=== PATIENT | male | born 1975 | race Caucasian/White ===

== ENCOUNTER 2020-10-16 12:04 | Inpatient (IN) | payer MEDICARE ==
[~2020-10-16] VITALS: Ht 185.5 cm; Wt 154.4 kg
[2020-10-16] VITALS (7 sets, daily range): BP systolic 102–131; BP diastolic 58–84
[~2020-10-16 12:04] MED LIST: NAPR-243 PO; TRM50T PO
--- NOTE | 2020-10-16 12:25 | ED Cough/URI ---
General Chief Complaint: Respiratory Problems Stated Complaint: COVID+ 10/10/20 WHEEZING/CONGESTION/DIARRHEA Source: patient Exam Limitations: no limitations History of Present Illness Date Seen by Provider: Oct 16, 2020 Time Seen by Provider: 12:25 Initial Comments 45-year-old male with history of COPD obesity (BMI 42) and coronary artery disease with one coronary stent presents to ER with reports of exertional dyspnea and cough. He tested positive at [facility] urgent care for COVID-19 on 10/10/2020. He became symptomatic the day before on the . He does not have a local physician. Timing/Duration: constant Severity/Quality: moderate Associated Symptoms: cough, shortness of breath, wheezing Allergies and Home Medications Allergies Coded Allergies: No Known Drug Allergies (Unverified , 10/16/20) Home Medications Prednisone 20 Mg Tab, 40 MG PO DAILY Prescribed by: ALETA SMITH on 10/16/20 1323 Patient Home Medication List Home Medication List Reviewed: Yes Review of Systems Review of Systems Constitutional: see HPI, chills, malaise, weakness EENTM: see HPI Respiratory: see HPI, cough, short of breath Genitourinary: no symptoms reported Musculoskeletal: no symptoms reported Skin: no symptoms reported Psychiatric/Neurological: No Symptoms Reported Hematologic/Lymphatic: No Symptoms Reported Immunological/Allergic: no symptoms reported Physical Exam Vital Signs - First Documented 10/16/20 12:20 Temp 37.6 Pulse 121 Resp 22 B/P (MAP) 138/98 (111) O2 Delivery Room Air Capillary Refill : Height: '" Weight: lbs. oz. kg; BMI Method: General Appearance: WD/WN, no apparent distress, obese, other (Oxygen saturation 93% on room air after walking to the room and outside, rises to 95% on room air with rest.) Eyes: Bilateral Eye Normal Inspection, Bilateral Eye PERRL, Bilateral Eye EOMI HEENT: PERRL/EOMI, normal ENT inspection Neck: non-tender, full range of motion Respiratory: no respiratory distress, no accessory muscle use, decreased breath sounds Cardiovascular: regular rate, rhythm, no murmur Gastrointestinal: normal bowel sounds, non tender, soft Extremities: normal range of motion, non-tender Neurologic/Psychiatric: alert, normal mood/affect, oriented x 3 Skin: normal color, warm/dry Progress/Results/Core Measures Suspected Sepsis SIRS Temperature: Pulse: Respiratory Rate: Laboratory Tests 12/23/20 12:18: White Blood Count 6.1 Blood Pressure / Mean: Laboratory Tests 10/16/20 12:18: Creatinine 1.12, Platelet Count 244, Total Bilirubin 0.7 Results/Orders Lab Results Laboratory Tests Test 10/16/20 12:18 Range/Units White Blood Count 6.1 4.3-11.0 10^3/uL Red Blood Count 5.30 4.30-5.52 10^6/uL Hemoglobin 16.5 13.3-17.7 g/dL Hematocrit 49 40-54 % Mean Corpuscular Volume 93 80-99 fL Mean Corpuscular Hemoglobin 31 25-34 pg Mean Corpuscular Hemoglobin Concent 34 32-36 g/dL Red Cell Distribution Width 12.2 10.0-14.5 % Platelet Count 244 130-400 10^3/uL Mean Platelet Volume 11.0 9.0-12.2 fL Immature Granulocyte % (Auto) 0 % Neutrophils (%) (Auto) 68 42-75 % Lymphocytes (%) (Auto) 26 12-44 % Monocytes (%) (Auto) 6 0-12 % Eosinophils (%) (Auto) 0 0-10 % Basophils (%) (Auto) 0 0-10 % Neutrophils # (Auto) 4.2 1.8-7.8 10^3/uL Lymphocytes # (Auto) 1.6 1.0-4.0 10^3/uL Monocytes # (Auto) 0.4 0.0-1.0 10^3/uL Eosinophils # (Auto) 0.0 0.0-0.3 10^3/uL Basophils # (Auto) 0.0 0.0-0.1 10^3/uL Immature Granulocyte # (Auto) 0.0 0.0-0.1 10^3/uL D-Dimer 0.42 0.00-0.49 UG/ML Sodium Level 134 L 135-145 MMOL/L Potassium Level 4.2 3.6-5.0 MMOL/L Chloride Level 100 98-107 MMOL/L Carbon Dioxide Level 21 21-32 MMOL/L Anion Gap 13 5-14 MMOL/L Blood Urea Nitrogen 13 7-18 MG/DL Creatinine 1.12 0.60-1.30 MG/DL Estimat Glomerular Filtration Rate > 60 BUN/Creatinine Ratio 12 Glucose Level 112 H 70-105 MG/DL Calcium Level 9.1 8.5-10.1 MG/DL Corrected Calcium 9.0 8.5-10.1 MG/DL Total Bilirubin 0.7 0.1-1.0 MG/DL Aspartate Amino Transf (AST/SGOT) 32 5-34 U/L Alanine Aminotransferase (ALT/SGPT) 29 0-55 U/L Alkaline Phosphatase 62 40-136 U/L Troponin I < 0.028 <0.028 NG/ML C-Reactive Protein High Sensitivity 1.68 H 0.00-0.50 MG/DL B-Type Natriuretic Peptide < 10.0 <100.0 PG/ML Total Protein 8.3 H 6.4-8.2 GM/DL Albumin 4.1 3.2-4.5 GM/DL Procalcitonin 0.05 <0.10 NG/ML My Orders Orders - ALETA SMITH APRN Procalcitonin (Pct) (10/16/20 12:22) Cbc With Automated Diff (10/16/20 12:22) Comprehensive Metabolic Panel (10/16/20 12:22) Fibrin Degradation Products (10/16/20 12:22) Chest 1 View, Ap/Pa Only (10/16/20 12:22) Ed Iv/Invasive Line Start (10/16/20 12:22) Troponin I (10/16/20 12:22) Ekg Tracing (10/16/20 12:22) BNP (10/16/20 12:22) Albuterol Inhaler (Ventolin Hfa) (10/16/20 14:00) Hs C Reactive Protein (10/16/20 12:30) Methylprednisolone Sod Succ (Solu-Medrol (10/16/20 13:30) Vital Signs/I&O 10/16/20 12:20 Temp 37.6 Pulse 121 Resp 22 B/P (MAP) 138/98 (111) O2 Delivery Room Air Capillary Refill : Diagnostic Imaging Diagonstic Imaging: Xray Plain Films/CT/US/NM/MRI: chest Comments NAME: JULIET ROJAS MED REC#: [id number] PT STATUS: REG ER : 1975 PHYSICIAN: ALETA SMITH APRN ADMIT DATE: 10/16/20/ER Draft Date of Exam:10/16/20 CHEST 1 VIEW, AP/PA ONLY INDICATION: COVID patient, cough, fever, and chest pain. FINDINGS: There is no focal infiltrate appreciable. Lungs appeared clear. No failure pattern, effusion, or pneumothorax. IMPRESSION: No acute radiographic abnormality. Dictated on workstation # [id number] Dict: 10/16/20 1251 Trans: 10/16/20 1254 [id number] [id number] Interpreted by: DANNY CHAN Electronically signed by: Departure Communication (Admissions) Time/Spoke to Admitting Phy: 13:[address] Rojas 7325-oxygen saturation oxygen saturation has dropped to 90% on room air. Given risk factors he would benefit from admission. Impression Primary Impression: COPD exacerbation Additional Impression: COVID-19 Disposition: 09 ADMITTED INPATIENT Condition: Stable Admissions Decision to Admit Reason: Admit from ER (General) Decision to Admit/Date: Oct 16, 2020 Time/Decision to Admit Time: 13:45 Departure-Patient Inst. Scripts Prednisone (Prednisone) 20 Mg Tab 40 MG PO DAILY, #8 TAB 0 Refills Prov: ALETA SMITH APRN 10/16/20 ALETA SMITH APRN Oct 16, 2020 12:25
[2020-10-16 12:34] LABS: ALBUMIN 4.1 GM/DL (3.2-4.5); CHLORIDE 100 MMOL/L (98-107); POTASSIUM 4.2 MMOL/L (3.6-5.0); SODIUM 134 MMOL/L (135-145)
[2020-10-16 12:36] LABS: CALCIUM 9.1 MG/DL (8.5-10.1)
[2020-10-16 12:37] LABS: GLUCOSE 112 MG/DL (70-105); TOTAL PROTEIN 8.3 GM/DL (6.4-8.2)
[2020-10-16 12:38] LABS: CARBON DIOXIDE 21 MMOL/L (21-32)
[2020-10-16 12:39] LABS: BILIRUBIN,TOTAL 0.7 MG/DL (0.1-1.0)
[2020-10-16 12:40] LABS: ALKALINE PHOSPHATASE 62 U/L (40-136); BASOPHILS % (AUTO) 0 % (0-10); EOSINOPHILS % (AUTO) 0 % (0-10); HEMATOCRIT 49 % (40-54); HEMOGLOBIN 16.5 g/dL (13.3-17.7); LYMPHOCYTES # (AUTO) 1.6 10^3/uL (1.0-4.0); LYMPHOCYTES % (AUTO) 26 % (12-44); MEAN CORPUSCULAR HEMOGLOBIN 31 pg (25-34); MEAN CORPUSCULAR HGB CONC 34 g/dL (32-36); MEAN CORPUSCULAR VOLUME 93 fL (80-99); MONOCYTES # (AUTO) 0.4 10^3/uL (0.0-1.0); MONOCYTES % (AUTO) 6 % (0-12); NEUTROPHILS # (AUTO) 4.2 10^3/uL (1.8-7.8); NEUTROPHILS % (AUTO) 68 % (42-75); PLATELET COUNT 244 10^3/uL (130-400); WHITE BLOOD COUNT 6.1 10^3/uL (4.3-11.0)
[2020-10-16 12:41] LABS: CREATININE SERUM 1.12 MG/DL (0.60-1.30); GFR ESTIMATED > 60
[2020-10-16 12:42] LABS: BUN/CREATININE RATIO 12
[2020-10-16 12:43] LABS: ALANINE AMINOTRANSFERASE 29 U/L (0-55)
--- NOTE | 2020-10-16 12:54 | Diagnostic Imaging Report ---
INDICATION: COVID patient, cough, fever, and chest pain. FINDINGS: There is no focal infiltrate appreciable. Lungs appeared clear. No failure pattern, effusion, or pneumothorax. IMPRESSION: No acute radiographic abnormality. Dictated by: Dictated on workstation # [id number]
[2020-10-16] MEDS ORDERED: PRD20T PO (13:23)
[2020-10-16] MEDS ORDERED: methylPREDNISolone 40 MG/ML (Solu-MEDROL) VIAL IV ONE (13:30)
[2020-10-16] MEDS ORDERED: IBUPROFEN 800 MG (MOTRIN) TAB PO ONE (14:00)
[2020-10-16] MEDS ORDERED: RT-ALBUTEROL INHALER HFA (VENTOLIN HFA) 18 GM IH SCH ×2 (14:00→18:00)
--- NOTE | 2020-10-16 14:35 | NUR ---
PT ADMITTED TO ROOM 422 AT THIS TIME. 3L[address] IN PLACE. PT A/O X4.
[2020-10-16] MEDS ORDERED: IBUPROFEN 600 MG (MOTRIN) TAB PO PRN (16:00)
[2020-10-16] MEDS ORDERED: ONDANSETRON 4 MG/2 ML (SDV) Z0FRAN IV PRN ×2 (16:00→17:30)
[2020-10-16] MEDS ORDERED: LOPERAMIDE 2 MG (IMODIUM) TABLET PO PRN (16:00)
[2020-10-16] MEDS ORDERED: CATHETER FLUSH 10 ML SYR IV PRN (16:00)
[2020-10-16] MEDS ORDERED: ACET-2267 PO (16:22)
--- NOTE | 2020-10-16 16:23 | NUR ---
SPOKE WITH THE PT (CALLED THE ROOM PHONE) TO COMPLETE THE MED REC PT DENIES TAKING ANY PRESCRIPTION MEDICATIONS OTC MEDS: TYLENOL EXTRA STRENGTH PRN
[2020-10-16] MEDS ORDERED: RT-ALBUTEROL INHALER HFA (VENTOLIN HFA) 18 GM IH PRN (17:00)
[2020-10-16] MEDS ORDERED: polyethylene glycoL POWDER 17 GM (MIRALAX) PACK PO PRN (17:30)
[2020-10-16] MEDS ORDERED: ANTACID SUSP 30 ML UDC (MYLANTA) PO PRN (17:30)
[2020-10-16] MEDS ORDERED: ONDANSETRON 4 MG (ZOFRAN) ORAL DISSOLVE TAB PO PRN (17:30)
[2020-10-16] MEDS ORDERED: ACETAMINOPHEN 325 MG TABLET PO PRN (17:30)
[2020-10-16] MEDS ORDERED: diphenhydrAMINE 25 MG TAB (BENADRYL) PO PRN (17:30)
[2020-10-16] MEDS ORDERED: MELATONIN 3 MG TABLET PO PRN (17:30)
[2020-10-16] MEDS ORDERED: NS IV 500 ML 500 ML ONE (17:54)
[2020-10-16] MEDS: ENOXAPARIN 40 MG/0.4 ML (LOVENOX) SYR SC SCH (18:27)
[2020-10-16] MEDS: RT-ALBUTEROL INHALER HFA (VENTOLIN HFA) 18 GM IH SCH (18:48)
[2020-10-16] MEDS: DOCUSATE SODIUM 100 MG (COLACE) CAP PO SCH (21:24)
[2020-10-16] MEDS: inSUlin ASPART (NovoLOG) 1 UNIT/0.01 ML (CHARGE PER UNIT) SC SCH (21:24)
[2020-10-16] MEDS: SENNOSIDES 8.6 MG (SENOKOT) TAB PO SCH (21:24)
[2020-10-16] MEDS: CATHETER FLUSH 10 ML SYR IV SCH (21:25)
[2020-10-17] VITALS: BP 133/83
[2020-10-17 04:00] VITALS: BP 106/69
[2020-10-17 05:07] LABS: BASOPHILS % (AUTO) 0 % (0-10); EOSINOPHILS % (AUTO) 0 % (0-10); HEMATOCRIT 42 % (40-54); HEMOGLOBIN 13.9 g/dL (13.3-17.7); LYMPHOCYTES % (AUTO) 13 % (12-44); MEAN CORPUSCULAR HEMOGLOBIN 32 pg (25-34); MEAN CORPUSCULAR HGB CONC 33 g/dL (32-36); MEAN CORPUSCULAR VOLUME 95 fL (80-99); MEAN PLATELET VOLUME 10.7 fL (9.0-12.2); MONOCYTES # (AUTO) 0.5 10^3/uL (0.0-1.0); MONOCYTES % (AUTO) 7 % (0-12); NEUTROPHILS % (AUTO) 79 % (42-75); PLATELET COUNT 316 10^3/uL (130-400); WHITE BLOOD COUNT 7.6 10^3/uL (4.3-11.0)
[2020-10-17] MEDS: RT-ALBUTEROL INHALER HFA (VENTOLIN HFA) 18 GM IH SCH ×3 (05:08→13:29)
[2020-10-17 05:33] LABS: ALANINE AMINOTRANSFERASE 34 U/L (0-55); ALBUMIN 3.7 GM/DL (3.2-4.5); ALKALINE PHOSPHATASE 58 U/L (40-136); BILIRUBIN,TOTAL 0.3 MG/DL (0.1-1.0); BUN/CREATININE RATIO 18; CALCIUM 8.8 MG/DL (8.5-10.1); CARBON DIOXIDE 23 MMOL/L (21-32); CHLORIDE 104 MMOL/L (98-107); CREATININE SERUM 1.13 MG/DL (0.60-1.30); GFR ESTIMATED > 60; GLUCOSE 148 MG/DL (70-105); POTASSIUM 4.3 MMOL/L (3.6-5.0); SODIUM 138 MMOL/L (135-145); TOTAL PROTEIN 7.7 GM/DL (6.4-8.2)
[2020-10-17] MEDS: inSUlin ASPART (NovoLOG) 1 UNIT/0.01 ML (CHARGE PER UNIT) SC SCH ×2 (05:58→11:09)
[2020-10-17] MEDS: ENOXAPARIN 40 MG/0.4 ML (LOVENOX) SYR SC SCH (05:58)
[2020-10-17] MEDS: CATHETER FLUSH 10 ML SYR IV SCH (05:59)
[2020-10-17 07:28] VITALS: BP 115/77
[2020-10-17] MEDS ORDERED: dexAMETHasone 6 MG TAB (DECADRON) PO SCH (08:00)
[2020-10-17] MEDS: SENNOSIDES 8.6 MG (SENOKOT) TAB PO SCH (08:37)
[2020-10-17] MEDS: DOCUSATE SODIUM 100 MG (COLACE) CAP PO SCH (08:37)
[2020-10-17 11:06] VITALS: BP 112/77
--- NOTE | 2020-10-17 13:29 | NUR ---
CM/SS visited with patient via phone for discharge planning. Plan: Patient will discharge home self care today 10/17. No needs. Home o2 study: The patient did not qualify for home oxygen. CM/SS informed the patient's primary care nurse. The patient reports he is doing well today and did not have any needs he could think of. He reports he will drive himself home.
--- NOTE | 2020-10-17 13:34 | NUR ---
pt did not qualify for 02. Addendum: 10/17/20 at 1335 by ANGELICA DIAMOND RT Amended: Links added.
--- NOTE | 2020-10-17 15:34 | Discharge Summary ---
Discharge Summary Hospital Course Was the Problem List Reviewed?: Yes Problems/Dx: (1) Acute respiratory failure due to COVID-19 Status: Acute Hospital Course Date of Admission: Oct 16, 2020 at 13:48 Admission Diagnosis : acute respiratory failure due to COVID-19 Family Physician/Provider: Ladan,Local Physician Date of Discharge: 10/17/20 Discharge Diagnosis: acute respiratory failure due to COVID-19 Hospital Course: Santo Moncada is a 45-year-old male who presented with shortness of breath and was admitted with acute respiratory failure due to COVID-19. He was initially requiring supplemental oxygen. He was started on Decadron and Remdesivir. He was given one unit of convalescent plasma. His symptoms and oxygen requirement quickly resolved. He underwent an oxygen evaluation but did not qualify for home use. He was discharged home in stable condition. He was instructed to quarantine for the next 24 hours, at which point he will be at 10 days post symptoms and as long as he is afebrile he can come out of quarantine. He should follow-up with his primary care physician. Labs and Pending Lab Test: Laboratory Tests 10/16/20 20:38: Glucometer 247H 10/17/20 04:55: White Blood Count 7.6, Red Blood Count 4.40, Hemoglobin 13.9, Hematocrit 42, Mean Corpuscular Volume 95, Mean Corpuscular Hemoglobin 32, Mean Corpuscular Hemoglobin Concent 33, Red Cell Distribution Width 12.8, Platelet Count 316, Mean Platelet Volume 10.7, Immature Granulocyte % (Auto) 1, Neutrophils (%) (Auto) 79H, Lymphocytes (%) (Auto) 13, Monocytes (%) (Auto) 7, Eosinophils (%) (Auto) 0, Basophils (%) (Auto) 0, Neutrophils # (Auto) 6.0, Lymphocytes # (Auto) 1.0, Monocytes # (Auto) 0.5, Eosinophils # (Auto) 0.0, Basophils # (Auto) 0.0, Immature Granulocyte # (Auto) 0.1, Sodium Level 138, Potassium Level 4.3, Chloride Level 104, Carbon Dioxide Level 23, Anion Gap 11, Blood Urea Nitrogen 20H, Creatinine 1.13, Estimat Glomerular Filtration Rate > 60, BUN/Creatinine Ratio 18, Glucose Level 148H, Calcium Level 8.8, Corrected Calcium 9.0, Total Bilirubin 0.3, Aspartate Amino Transf (AST/SGOT) 33, Alanine Aminotransferase (ALT/SGPT) 34, Alkaline Phosphatase 58, Total Protein 7.7, Albumin 3.7 10/17/20 11:05: Glucometer 133H Home Meds Active Reported Tylenol Extra Strength (Acetaminophen) 500 Mg Tablet 1,000 Mg PO Q8H PRN Assessment/Pt Instructions take medications as prescribed. Follow-up with your primary care physician. Return with worsening shortness of breath or if you feel like you're getting worse. Discharge Planning: <30 minutes discharge planning Discharge Instructions Discharge Diet: No Restrictions Activity as Tolerated: Yes Discharge Physical Examination Vital Signs Vital Signs Date Time Temp Pulse Resp B/P (MAP) Pulse Ox O2 Delivery O2 Flow Rate FiO2 10/17/20 13:33 115 95 10/17/20 13:30 Room Air 10/17/20 11:06 36.7 18 112/77 (89) 3.00 General Appearance: No Apparent Distress, Obese HEENT: PERRL/EOMI, Pharynx Normal Respiratory: Lungs Clear, Normal Breath Sounds, No Respiratory Distress Cardiovascular: Regular Rate, Rhythm, No Edema, No Murmur Gastrointestinal: Normal Bowel Sounds, Non Tender, Soft Extremity: Normal Inspection, Non Tender, No Pedal Edema Skin: Normal Color, Warm/Dry Neurologic/Psychiatric: Alert, Oriented x3, No Motor/Sensory Deficits, Normal Mood/Affect Allergies: Coded Allergies: No Known Drug Allergies (Unverified , 10/16/20) Discharge Summary Date of Admission Oct 16, 2020 at 13:48 Date of Discharge Discharge Date: Oct 17, 2020 Discharge Time: 15:33 Admission Diagnosis acute respiratory failure due to COVID-19 Discharge Diagnosis (1) Acute respiratory failure due to COVID-19 Status: Acute Clinical Quality Measures DVT/VTE Risk/Contraindication: Risk Factor Score Per Nursin RFS Level Per Nursing on Admit: 2=Moderate MURTAZA SANTANA MD Oct 17, 2020 15:34
[2020-10-17 15:47] VITALS: BP 112/77
== END 2020-10-17 14:45 | disposition home or self-care (01) | DRG 177 ==
LOC: EDUNIT# 12:04 → ER 12:07 → 4TH 13:48 → MERGE 13:48
PROVIDERS: ADMIT Internal Medicine; ATTEND Internal Medicine
PROC: XW033E5 Introduction of Remdesivir Anti-infective into Peripheral Vein, Percutaneous Approach, New Technology Group 5 (ICD-10-PCS; principal; 2020-10-16)
PROC: XW13325 Transfusion of Convalescent Plasma (Nonautologous) into Peripheral Vein, Percutaneous Approach, New Technology Group 5 (ICD-10-PCS; 2020-10-16)
DX: U07.1 COVID-19 (principal); J96.01 Acute respiratory failure with hypoxia; J44.1 Chronic obstructive pulmonary disease with (acute) exacerbation
CPT/HCPCS: 36415; 71045; 80053; 82962; 83880; 84145; 84484; 85025; 85379; 86141; 86900; 86901; 94640; 94761

== ENCOUNTER 2023-06-30 17:08 | Emergency (ER) | payer SELFPAY ==
[~2023-06-30] VITALS: Ht 185 cm; Wt 172.0 kg
[~2023-06-30 17:08] MED LIST changes: +ACET-2267 PO; +PRD20T PO
[2023-06-30 17:17] VITALS: BP 158/113
[2023-06-30] MEDS ORDERED: NS IV 1000 ML 1,000 ML IV SCH (17:30)
[2023-06-30] MEDS ORDERED: KETOROLAC INJ 30 MG/ML VIAL IVP ONE (17:30)
--- NOTE | 2023-06-30 17:38 | ED Abdominal Pain ---
General Chief Complaint: Abdominal/GI Problems Stated Complaint: RIGHT SIDE PAIN Nursing Triage Note: PT AMB TO RM 1 WITH C/O RLQ PAIN THAT RADIATES TO BACK THAT STARTED WEDNESDAY. PT HAS HX OF KIDNEY STONES Source of Information: Patient Exam Limitations: No Limitations History of Present Illness Date Seen by Provider: Jun 30, 2023 Time Seen by Provider: 17:23 Initial Comments 48-year-old male presents to the ER with reports of right lower quadrant abdominal pain that radiates to his back starting on 06/27/2023. He reports history of kidney stones, states that this pain feels like his previous kidney stone. He states that the pain radiates to his right side and right flank only when he puts pressure in his right lower abdomen. He does report dysuria and small amount of hematuria 1 time today. Denies fevers and nausea and vomiting. Allergies and Home Medications Allergies Coded Allergies: No Known Drug Allergies (Unverified , 02/21/12) Patient Home Medication List Home Medication List Reviewed: Yes Acetaminophen (Tylenol Extra Strength) 500 Mg Tablet, 1,000 MG PO Q8H PRN for PAIN-MILD (1-4), (Reported) Entered as Reported by: BROOKLYN APARICIO on 10/16/20 1622 Cefuroxime Axetil (Cefuroxime) 500 Mg Tablet, 500 MG PO BID Prescribed by: Arabella Huynh on 06/30/232126 Naproxen (Naprosyn) 500 Mg Tablet, 1 EACH PO TID PRN Prescribed by: GUY CUI on 02/21/121952 Tramadol Hcl (Ultram) 50 Mg Tab, 50 MG PO Q4-6HOURS PRN Prescribed by: GUY CUI on 02/21/121952 Review of Systems Review of Systems Constitutional: see HPI Past Otyrilu-Boodak-Rucvyf Hx Patient Social History Tobacco Use?: No Use of E-Cig and/or Vaping dev: No Substance use?: No Alcohol Use?: Yes Pt feels they are or have been: No Seasonal Allergies Seasonal Allergies: Yes Past Medical History Surgery/Hospitalization HX: HTN, COPD, DM HEART STENT, LOW BACK SURGERY Coronary Stent Respiratory: Yes COPD Cardiac: Yes (HEART STENT ) Coronary Artery Disease, Hypertension Neurological: No Genitourinary: Yes Kidney Stones Gastrointestinal: No Musculoskeletal: Yes Degenerate Disk Disease Endocrine: No HEENT: No Cancer: No Psychosocial: No Anxiety, Depression Integumentary: No Physical Exam Vital Signs Vital Signs - First Documented 06/30/23 17:17 Pulse 96 Resp 18 B/P (MAP) 158/113 (128) Pulse Ox 98 O2 Delivery Room Air Capillary Refill : Height/Weight/BMI Height: '" Weight: lbs. oz. kg; 50.00 BMI Method:Stated General Appearance: WD/WN, no apparent distress Neck: supple, normal inspection Respiratory: lungs clear, normal breath sounds, no respiratory distress, no accessory muscle use Cardiovascular: regular rate, rhythm Gastrointestinal: normal bowel sounds, soft; No rebound; tenderness (Right lowe r quadrant tenderness, palpation of left lower quadrant and right upper quadrant causes pain in right lower quadrant) Extremities: normal range of motion, normal inspection Neurologic/Psychiatric: alert, normal mood/affect Skin: normal color, warm/dry Progress/Results/Core Measures Results/Orders Lab Results Laboratory Tests Test 06/30/23 17:30 06/30/23 19:10 Range/Units White Blood Count 9.5 4.3-11.0 10^3/uL Red Blood Count 4.65 4.30-5.52 10^6/uL Hemoglobin 14.9 13.3-17.7 g/dL Hematocrit 45 40-54 % Mean Corpuscular Volume 97 80-99 fL Mean Corpuscular Hemoglobin 32 25-34 pg Mean Corpuscular Hemoglobin Concent 33 32-36 g/dL Red Cell Distribution Width 12.6 10.0-14.5 % Platelet Count 290 130-400 10^3/uL Mean Platelet Volume 10.2 9.0-12.2 fL Immature Granulocyte % (Auto) 0 % Neutrophils (%) (Auto) 57 42-75 % Lymphocytes (%) (Auto) 32 12-44 % Monocytes (%) (Auto) 8 0-12 % Eosinophils (%) (Auto) 2 0-10 % Basophils (%) (Auto) 0 0-10 % Neutrophils # (Auto) 5.5 1.8-7.8 10^3/uL Lymphocytes # (Auto) 3.1 1.0-4.0 10^3/uL Monocytes # (Auto) 0.8 0.0-1.0 10^3/uL Eosinophils # (Auto) 0.2 0.0-0.3 10^3/uL Basophils # (Auto) 0.0 0.0-0.1 10^3/uL Immature Granulocyte # (Auto) 0.0 0.0-0.1 10^3/uL Sodium Level 142 135-145 MMOL/L Potassium Level 4.7 3.6-5.0 MMOL/L Chloride Level 107 98-107 MMOL/L Carbon Dioxide Level 24 21-32 MMOL/L Anion Gap 11 5-14 MMOL/L Blood Urea Nitrogen 11 7-18 MG/DL Creatinine 1.01 0.60-1.30 MG/DL Estimat Glomerular Filtration Rate 91 BUN/Creatinine Ratio 11 Glucose Level 101 70-105 MG/DL Calcium Level 9.7 8.5-10.1 MG/DL Corrected Calcium 9.6 8.5-10.1 MG/DL Total Bilirubin 0.7 0.1-1.0 MG/DL Aspartate Amino Transf (AST/SGOT) 35 H 5-34 U/L Alanine Aminotransferase (ALT/SGPT) 38 0-55 U/L Alkaline Phosphatase 70 40-136 U/L C-Reactive Protein High Sensitivity 0.61 H 0.00-0.50 MG/DL Total Protein 8.1 6.4-8.2 GM/DL Albumin 4.1 3.2-4.5 GM/DL Urine Color YELLOW Urine Clarity CLOUDY Urine pH 5.0 5-9 Urine Specific Mentcle >=1.030 1.016-1.022 Urine Protein 1+ H NEGATIVE Urine Glucose (UA) NEGATIVE NEGATIVE Urine Ketones NEGATIVE NEGATIVE Urine Nitrite NEGATIVE NEGATIVE Urine Bilirubin 1+ H NEGATIVE Urine Urobilinogen 0.2 < = 1.0 MG/DL Urine Leukocyte Esterase 1+ H NEGATIVE Urine RBC (Auto) TRACE H NEGATIVE Urine RBC 10-25 H /HPF Urine WBC TNTC H /HPF Urine Squamous Epithelial Cells RARE /HPF Urine Crystals NONE /LPF Urine Bacteria MODERATE H /HPF Urine Casts PRESENT /LPF Urine Hyaline Casts 2-5 H /LPF Urine Mucus MODERATE H /LPF Urine Culture Indicated YES Micro Results Microbiology 06/30/23 Urine Culture - Final, Complete Gram Pos Mixed Bacterial Yamile My Orders Orders - ARABELLA MORAN APRN Ua Culture If Indicated (06/30/23 17:23) Comprehensive Metabolic Panel (06/30/23 17:30) Ed Iv/Invasive Line Start (06/30/23 17:30) Cbc With Automated Diff (06/30/23 17:30) Hs C Reactive Protein (06/30/23 17:30) Ns Iv 1000 Ml (Ns Iv 1000 Ml) (06/30/23 17:30) Ketorolac Injection (Ketorolac Injection (06/30/23 17:30) Ct Abd/Pelvis Wo(Kidney Stone) (06/30/23 18:32) Urine Culture (06/30/23 19:10) Ceftriaxone Iv/Im (Ceftriaxone Iv/Im) (06/30/23 20:15) Medications Given in ED Vital Signs/I&O 06/30/23 17:17 Pulse 96 Resp 18 B/P (MAP) 158/113 (128) Pulse Ox 98 O2 Delivery Room Air Blood Pressure Mean: 128 Progress Progress Note : Progress Note Patient seen and evaluated, resting in bed, no acute distress. Based on exam and symptoms, differential diagnosis includes but not limited to nephrolithiasis, pyelonephritis, UTI, appendicitis. Work-up initiated including CBC, CMP, CRP, UA. IV fluids and Toradol ordered. Will order CT scan after evaluation of labs. 1832 Labs reviewed. CBC grossly normal. CMP grossly normal. CRP normal. Noncontrast CT scan ordered. Patient has not provided urine sample yet. 2000 CT and urinalysis reviewed. CT shows no renal calculus or hydronephrosis. No acute abnormality. It does show hepatic stenosis. Urinalysis shows 1+ protein, 1+ bilirubin, 1+ leukocytes, trace RBCs, too many to count WBCs, moderate bacteria. Rocephin ordered for urinary tract infection. Will discharge with prescription for antibiotic. Results discussed with patient. Discharge instructions and return precautions provided. Diagnostic Imaging Diagonstic Imaging: CT Plain Films/CT/US/NM/MRI: abdomen, pelvis Comments [facility]. [place], [place] NAME: CRYSTALJULIET [facility] REC#: [id number] PT STATUS: REG ER : 1975 PHYSICIAN: ARABELLA MORAN APRN ADMIT DATE: 06/30/23/ER Signed Date of Exam:06/30/23 CT ABD/PELVIS WO(KIDNEY STONE) EXAMINATION: CT abdomen and pelvis without contrast. TECHNIQUE: Multiple contiguous axial images were obtained through the abdomen and pelvis without the use of intravenous contrast. All CT scans use one or more of the following dose optimizing techniques: automated exposure control, MA and/or KvP adjustment based on patient size and exam type or iterative reconstruction. HISTORY: Flank pain, kidney stone suspected COMPARISON: None available. FINDINGS: Lung bases: The lung bases are clear. Solid organs: There is diffuse hypoattenuation the liver which can be seen with hepatic steatosis. The gallbladder is normal. There is no biliary ductal dilation. Pancreas is normal. Spleen is normal. Adrenal glands are normal. The kidneys are normal without visualized calculus or hydronephrosis. Bowel: The stomach and small bowel are normal without obstruction. The colon is normal. The appendix is normal. Peritoneum: There is no intraperitoneal free fluid or free air. No suspicious lymphadenopathy. Vasculature: Normal without aneurysm. Musculoskeletal: Degenerative changes of the spine without suspicious osseous lesion or compression fracture. Surgical changes of L4-L5 from spinal fusion. Pelvis: The prostate gland is normal. The urinary bladder is normal. IMPRESSION: 1. No visualized renal calculus or hydronephrosis. 2. No acute abnormality in the abdomen or pelvis. 3. Hepatic steatosis. Dictated by: Dictated on workstation # [id number] Dict: 06/30/231847 Trans: 06/30/231913 [facility] [id number] Interpreted by: ARIAN GRULLON DO Electronically signed by: ARIAN GRULLON DO 06/30/231913 Departure Impression Primary Impression: Urinary tract infection Disposition: 01 HOME, SELF-CARE Condition: Stable Departure-Patient Inst. Referrals: [facility] (PCP/Family) Primary Care Physician Patient Instructions: Urinary Tract Infection, Adult (DC) Add. Discharge Instructions: Complete full course of antibiotic as prescribed. Follow-up with your primary care provider. Return for significant pain, inability to urinate, fever, or any other new, concerning, or worsening symptoms. All discharge instructions reviewed with patient and/or family. Voiced understanding. Scripts Cefuroxime Axetil (Cefuroxime) 500 Mg Tablet 500 MG PO BID for 10 Days, #20 TAB 0 Refills Prov: ARABELLA MORAN APRN 06/30/23 ARABELLA MORAN APRN Jun 30, 2023 17:38
[2023-06-30 17:39] LABS: BASOPHILS % (AUTO) 0 % (0-10); EOSINOPHILS # (AUTO) 0.2 10^3/uL (0.0-0.3); EOSINOPHILS % (AUTO) 2 % (0-10); HEMATOCRIT 45 % (40-54); HEMOGLOBIN 14.9 g/dL (13.3-17.7); LYMPHOCYTES # (AUTO) 3.1 10^3/uL (1.0-4.0); LYMPHOCYTES % (AUTO) 32 % (12-44); MEAN CORPUSCULAR HEMOGLOBIN 32 pg (25-34); MEAN CORPUSCULAR HGB CONC 33 g/dL (32-36); MEAN CORPUSCULAR VOLUME 97 fL (80-99); MEAN PLATELET VOLUME 10.2 fL (9.0-12.2); MONOCYTES # (AUTO) 0.8 10^3/uL (0.0-1.0); MONOCYTES % (AUTO) 8 % (0-12); NEUTROPHILS # (AUTO) 5.5 10^3/uL (1.8-7.8); NEUTROPHILS % (AUTO) 57 % (42-75); PLATELET COUNT 290 10^3/uL (130-400); WHITE BLOOD COUNT 9.5 10^3/uL (4.3-11.0)
[2023-06-30 18:10] LABS: ALBUMIN 4.1 GM/DL (3.2-4.5); BILIRUBIN,TOTAL 0.7 MG/DL (0.1-1.0); CALCIUM 9.7 MG/DL (8.5-10.1); CREATININE SERUM 1.01 MG/DL (0.60-1.30); POTASSIUM 4.7 MMOL/L (3.6-5.0); TOTAL PROTEIN 8.1 GM/DL (6.4-8.2)
--- NOTE | 2023-06-30 19:10 | Diagnostic Imaging Report ---
EXAMINATION: CT abdomen and pelvis without contrast. TECHNIQUE: Multiple contiguous axial images were obtained through the abdomen and pelvis without the use of intravenous contrast. All CT scans use one or more of the following dose optimizing techniques: automated exposure control, MA and/or KvP adjustment based on patient size and exam type or iterative reconstruction. HISTORY: Flank pain, kidney stone suspected COMPARISON: None available. FINDINGS: Lung bases: The lung bases are clear. Solid organs: There is diffuse hypoattenuation the liver which can be seen with hepatic steatosis. The gallbladder is normal. There is no biliary ductal dilation. Pancreas is normal. Spleen is normal. Adrenal glands are normal. The kidneys are normal without visualized calculus or hydronephrosis. Bowel: The stomach and small bowel are normal without obstruction. The colon is normal. The appendix is normal. Peritoneum: There is no intraperitoneal free fluid or free air. No suspicious lymphadenopathy. Vasculature: Normal without aneurysm. Musculoskeletal: Degenerative changes of the spine without suspicious osseous lesion or compression fracture. Surgical changes of L4-L5 from spinal fusion. Pelvis: The prostate gland is normal. The urinary bladder is normal. IMPRESSION: 1. No visualized renal calculus or hydronephrosis. 2. No acute abnormality in the abdomen or pelvis. 3. Hepatic steatosis. Dictated by: Dictated on workstation # [id number]
[2023-06-30 19:44] LABS: BACTERIA,URINE MODERATE /HPF; BILIRUBIN,URINE 1+ (NEGATIVE); CLARITY,URINE CLOUDY; COLOR,URINE YELLOW; GLUCOSE, URINE (UA) NEGATIVE (NEGATIVE); KETONES,URINE NEGATIVE (NEGATIVE); LEUKOCYTE ESTERASE ,URINE 1+ (NEGATIVE); NITRITE,URINE NEGATIVE (NEGATIVE); PROTEIN,URINE 1+ (NEGATIVE); SQUAMOUS EPITHELIAL CELL,UR RARE /HPF; WBC,URINE TNTC /HPF
[2023-06-30] MEDS ORDERED: cefTRIAXone IV/IM 1,000 MG in NS (IVPB) 50 ML 50 ML IV ONE (20:15)
[2023-06-30] MEDS ORDERED: CEFU500T63 PO (21:27)
== END 2023-06-30 21:43 | disposition home or self-care (01) ==
LOC: EDUNIT# 17:08 → ER 17:09
DX: N39.0 Urinary tract infection, site not specified (principal); Z87.442 Personal history of urinary calculi
CPT/HCPCS: 36415; 74176; 80053; 81000; 85025; 86141; 87088